=== PATIENT | female | born 1950 | race Caucasian/White ===

== ENCOUNTER → 2016-10-11 | Outpatient (CLI) | payer MEDICARE, OTHER ==
[~2016-10-11] MED LIST: ASP81TEC PO; ATOR10TA66 PO; ATOR40TA70 PO; CALC-732 PO; CHOL2000 PO; DULO20CA PO; DULO60CA6 PO; EST.625T PO; FURO20TA4 PO; HYDR-3730 PO; HYOS0.1281 PO; L.AC1CAP6 PO; LISI-594 PO; LISI10TA2 PO; METH32TA PO; MULT1CAP27 PO; NAPR-243 PO; OMEP20CA12 PO; ONDA4TAB8 PO; PANT40TA PO; POTA10CA43 PO; ROSU5TAB PO; SCR1T PO; VITA400C58 PO
--- NOTE | 2016-10-11 17:46 | Diagnostic Imaging Report ---
Bilateral screening mammogram The current study was also evaluated with a Computer Aided Detection (CAD) system. INDICATION: Screening. No current complaints stated on the questionnaire. COMPARISON: 10/11/2015. FINDINGS: The breasts are composed of heterogeneously dense parenchyma which may decrease mammographic sensitivity. Punctate benign-appearing calcifications are seen. Stable nodule in the outer aspect of the right breast has a suggestion of a fatty hilum of an intramammary lymph node. Allowing for technique and positional differences, no suspicious change is seen. IMPRESSION: No significant change. ACR BI-RADS Category 2: Benign findings. Result letter will be mailed to the patient. Note: At least 10% of breast cancer is not imaged by mammography. Dictated by: Dictated on workstation # [id number]
== END ==
LOC: RAD 13:49
PROVIDERS: ATTEND Family Medicine
DX: Z12.31 Encounter for screening mammogram for malignant neoplasm of breast (principal)
CPT/HCPCS: 77067

== ENCOUNTER → 2017-10-23 | Outpatient (CLI) | payer MEDICARE, OTHER ==
--- NOTE | 2017-10-25 11:41 | Diagnostic Imaging Report ---
INDICATION: Digital mammogram bilateral screening. This study was compared to prior exams of 10/11/2016 and 10/11/2015 and 10/07/2014. At this time, there are no current complaints. The current study was also evaluated with a Computer Aided Detection (CAD) system. FINDINGS: The fibroglandular tissue in both breasts is heterogeneously dense. This does limit the sensitivity of this exam. Overall, there does not appear to have been any significant change when compared to the prior study. No primary or secondary sign of malignancy is noted. IMPRESSION: There is no radiographic evidence for malignancy. ACR BI-RADS Category 1: Negative. Result letter will be mailed to the patient. Note: At least 10% of breast cancer is not imaged by mammography. Dictated on workstation # [id number]
== END ==
LOC: RAD 08:42
PROVIDERS: ATTEND Family Medicine
DX: Z12.31 Encounter for screening mammogram for malignant neoplasm of breast (principal)
CPT/HCPCS: 77067

== ENCOUNTER 2017-11-14 14:30 | Outpatient (CLI) | payer MEDICARE, OTHER ==
[~2017-11-14] VITALS: Ht 175.3 cm; Wt 85.4 kg
[2017-11-14] MEDS ORDERED: DULO60CA58 PO (14:33)
[2017-11-14] MEDS ORDERED: PANT40TA3 PO (14:33)
[2017-11-14] MEDS ORDERED: NAPR-915 PO (14:33)
== END 2017-11-14 14:57 ==
LOC: PREOP 14:30
PROVIDERS: ATTEND Surgery
DX: Z01.818 Encounter for other preprocedural examination (principal); R13.10 Dysphagia, unspecified

== ENCOUNTER 2017-11-20 09:20 | Day surgery (SDC) | payer MEDICARE, OTHER ==
[~2017-11-20] VITALS: Ht 175.3 cm; Wt 85.4 kg
[~2017-11-20 09:20] MED LIST changes: +DULO60CA58 PO; +NAPR-915 PO; +PANT40TA3 PO
[2017-11-20] MEDS ORDERED: NS IV 500 ML 500 ML IV PRN (09:27)
[2017-11-20] MEDS ORDERED: NS IV 500 ML 500 ML ONE (09:28)
[2017-11-20] MEDS ORDERED: HURRICAINE EXT TUBE (BENZOCAINE) XX PRN (09:30)
[2017-11-20] MEDS ORDERED: FLUMAZENIL (ROMAZICON) 0.1 MG/ML 5 ML VIAL INJ PRN (09:30)
[2017-11-20] MEDS ORDERED: NALOXONE 0.4 MG/ML 1 ML (NARCAN) VIAL IVP PRN (09:30)
[2017-11-20] MEDS ORDERED: LIDOCAINE JELLY 2% (XYLOCAINE) 5 ML TUBE MM PRN (09:30)
[2017-11-20 09:55] VITALS: BP 124/77
[2017-11-20] MEDS ORDERED: MIDAZOLAM 2 MG/2 ML (VERSED) VIAL ONE ×3 (10:04→10:05)
[2017-11-20] MEDS ORDERED: LIDOCAINE JELLY 2% (XYLOCAINE) 5 ML TUBE ONE (10:05)
[2017-11-20] MEDS ORDERED: fentaNYL INJECTION 100 MCG/2 ML AMP ONE (10:05)
[2017-11-20] MEDS ORDERED: HURRICAINE EXT TUBE (BENZOCAINE) ONE (10:05)
[2017-11-20] MEDS: fentaNYL INJECTION 100 MCG/2 ML AMP IVP PRN ×2 (10:30→10:40)
[2017-11-20] MEDS ORDERED: ONDANSETRON 4 MG/2 ML (SDV) Z0FRAN IV PRN (10:30)
[2017-11-20] MEDS ORDERED: ACETAMINOPHEN 325 MG TABLET/CAPLET (TYLENOL) PO PRN (10:30)
[2017-11-20] MEDS ORDERED: morphine INJ 10 MG/ML 1ML (SYR OR VIAL) IV PRN (10:30)
[2017-11-20] MEDS ORDERED: HYDROcodone/APAP 5 MG/325 MG (LORTAB) TAB PO PRN (10:30)
--- NOTE | 2017-11-20 10:30 | Conscious Sedation/ASA ---
Conscious Sedation Pre-Proced Time Reviewed: 10:00 ASA Class: 2 Airway Mallampati Classification: ([place] appropriate class) I. II. III, IV Lungs Heart ASA score ASA 1: a normal healthy patient ASA 2: a patient with a mild systemic disease (mid diabetes, controlled hypertension, obesity ASA 3: a patient with a severe systemic disease that limits activity (angina , COPD, prior Myocardial infarction) ASA 4: a patient with an incapacitating disease that is a constant threat to life (CHF, renal failure) ASA 5: a moribund patient not expected to survive 24 hrs. (ruptured aneurysm) ASA 6: a declared brain patient whose organs are being harvested. For emergent operations, add the letter E after the classification Grade 2 Sedation Plan: Analgesia, Amnesia, Plan communicated to team members, Discussed options with patient/fam, Discussed risks with patient/fam Note The patient is an appropriate candidate to undergo the planned procedure, sedation, and anesthesia. The patient immediately re-assessed prior to indication. AMRIT HULL MD November 20, 2017 10:30 am
--- NOTE | 2017-11-20 10:30 | Progress Note-Pre Operative ---
Pre-Operative Progress Note H&P Reviewed The H&P was reviewed, patient examined and no changes noted. Date Seen by Provider: November 20, 2017 Time Seen by Provider: 10:00 Date H&P Reviewed: November 20, 2017 Time H&P Reviewed: 10:00 Pre-Operative Diagnosis: dysphagia AMRIT HULL MD November 20, 2017 10:30 am
[2017-11-20] MEDS: MIDAZOLAM 2 MG/2 ML (VERSED) VIAL IVP PRN ×3 (10:32→10:50)
--- NOTE | 2017-11-20 11:06 | Progress Note-Post Operative ---
Post-Operative Progess Note Surgeon (s)/Full Stack Web Developer (s) Surgeon AMRIT HULL MD Full Stack Web Developer: none Pre-Operative Diagnosis dysphagia Post-Operative Diagnosis reflux esophagitis(class B), mild stricture, recurrent HH, mild gastritis. Procedure & Operative Findings Date of Procedure 11/20/17 Procedure Performed/Findings EGD with bx and balloon dilatation. Anesthesia Type CS Estimated Blood Loss Estimated blood loss (mL): minimal Specimens/Packing Specimens Removed GE jxn, antrum AMRIT HULL MD November 20, 2017 11:05 am
--- NOTE | 2017-11-20 11:07 | Discharge Inst-Surgical ---
D/C Lap Instructions-KURTIS Follow Up PRN Activity as tolerated High Fiber Diet 25g or more per day Avoid Alcohol, Caffeine, Spicy [place] and Acid foods. Drink 64 fluid oz or more of fluids per day. Symptoms to Report: Fever over 101 degree F, Nausea/Vomiting If any problems/questions: Contact your physician or go to Emergency Room AMRIT HULL MD November 20, 2017 11:07 am
[2017-11-20 11:10] VITALS: BP 114/74
[2017-11-20 11:45] VITALS: BP 119/76
[2017-11-20 12:13] VITALS: BP 119/76
--- NOTE | 2017-11-20 19:59 | OPERATIVE REPORT ---
DATE OF SERVICE: 11/20/2017 ATTENDING PRIMARY CARE PHYSICIAN: Latisha Beaulieu DO. PREOPERATIVE DIAGNOSIS: Dysphagia. POSTOPERATIVE DIAGNOSES: Reflux esophagitis class B, mild distal esophageal stricture, recurrent hiatal hernia, mild gastritis. PROCEDURE: EGD with biopsy and balloon dilatation. SURGEON: Amrit Hull MD ANESTHESIA: Conscious sedation. ESTIMATED BLOOD LOSS: Minimal. FINDINGS: Reflux esophagitis class B. There was also distal esophageal stricture, which was mild. There was a recurrent hiatal hernia identified with an intact wrap. DISPOSITION: The patient tolerated the procedure well. INDICATIONS: The patient is a 67-year-old female with longstanding history of gastroesophageal reflux disease. She underwent an EGD on 12/07/2011, which showed a reflux esophagitis class B as well as a large hiatal hernia. She continued to have symptoms and on 11/10/2015, underwent a laparoscopic hiatal hernia repair and Margie fundoplication. She states that her reflux symptoms have gone away; however, she went on a trip to [place] and was noncompliant with food and drinking alcohol and did feel substernal pressure sensation as well as epigastric discomfort. Since that time she has been taking Protonix, which has helped some, but she continues to have some symptoms with dysphagia. DESCRIPTION OF PROCEDURE: The patient was brought to the endoscopy suite, laid in the left lateral decubitus position with head slightly elevated. After adequate IV pain and sedating medications and conscious sedation anesthesia, the mouthpiece was applied. The endoscope was then placed in the mouth visualizing the pharynx and hypopharyngeal region. Vocal cords, epiglottis and vallecula identified and appeared normal. Endoscope was then gently intubated at the esophageal opening, esophagus insufflated. The endoscope was then advanced through the first, second and third portions of the esophagus at the level of the GE junction, a reflux esophagitis class B identified. There was a mild stricture identified within this region as well. A biopsy was taken with forceps to visualization of good hemostasis. The endoscope was then advanced in the stomach and endoscope retroflexed, visualizing a recurrent hiatal hernia. The wrap was intact with the wrap within the hiatal hernia. A mild gastritis was noted. There were no ulcers, polyps or any neoplasms identified. A biopsy was taken of the stomach antrum with forceps with visualization of good hemostasis. The endoscope was then advanced to the pylorus and into the first and second portion of the duodenum, which appeared normal with no distal obstructions. We decided to proceed with dilatation of the wrapped portion to allow for symptomatic relief. A CRE fixed guidewire balloon was placed into the stomach and placed back to the area of the stricture. We first proceeded with 3 atmospheres of pressure 18 mm with no resistance. We then proceeded to 4.5 atmospheres of pressure or 19 mm in diameter with mild resistance. We then proceeded to approximately 5 atmospheres of pressure with moderate resistance and left this in place for approximately 60 seconds. The balloon was then desufflated and removed. There were no mucosal tears identified as well as no bleeding. The endoscope was then slowly withdrawn while taking a second look and suctioning of residual air with no additional findings. The patient tolerated the procedure well. We will recommend a conservative management with small more frequent meals, avoidance of eating at night as well as head elevation while lying supine. She also needs to avoid caffeinated beverages, alcohol as well as spicy, greasy and acidic foods. Hopefully, the dilatation of the wrapped portion of the Margie will help with her symptoms. However, she does have a recurrent hiatal hernia. There is increased morbidity with repair of recurrent hiatal hernias and we will recommend conservative medical management. However, for symptoms worsen despite maximal medical therapy. We will refer her to a thoracic specialist. Job ID: [id number] DocumentID: [id number] Dictated Date: 11/20/2017 11:13:42 Supervisor Pairing And Inspecting Date: 11/20/2017 19:58:31 Dictated By: AMRIT HULL MD
== END 2017-11-20 12:15 | disposition home or self-care (01) ==
LOC: ENDO 09:20
PROVIDERS: ATTEND Surgery
DX: K21.0 Gastro-esophageal reflux disease with esophagitis (principal); K22.2 Esophageal obstruction; K44.9 Diaphragmatic hernia without obstruction or gangrene; K29.70 Gastritis, unspecified, without bleeding; I10 Essential (primary) hypertension; E78.00 Pure hypercholesterolemia, unspecified; Z98.1 Arthrodesis status; Z79.899 Other long term (current) drug therapy
CPT/HCPCS: 88305

== ENCOUNTER → 2017-12-17 | Outpatient (CLI) | payer MEDICARE, OTHER ==
--- NOTE | 2017-12-17 13:12 | Diagnostic Imaging Report ---
INDICATION: Pelvic pain, bilateral oophorectomy and hysterectomy. FINDINGS: Uterus and ovaries are surgically absent. No pelvic fluid collection or ascites. IMPRESSION: Normal postoperative pelvic ultrasound. Dictated by: Dictated on workstation # [id number]
== END ==
LOC: RAD 11:22
PROVIDERS: ATTEND Nurse Practitioner Family
DX: R10.2 Pelvic and perineal pain (principal); Z90.710 Acquired absence of both cervix and uterus; Z90.722 Acquired absence of ovaries, bilateral
CPT/HCPCS: 76830; 76856

== ENCOUNTER → 2018-01-01 | Outpatient (CLI) | payer MEDICARE, OTHER ==
--- NOTE | 2018-01-01 12:26 | Diagnostic Imaging Report ---
INDICATION: Low back pain. COMPARISON: None. FINDINGS: Three views of the lumbar spine are obtained. There is moderate levocurvature of the lumbar spine. There is minimal retrolisthesis of L2 on L3, likely degenerative. There is facet arthropathy throughout the lumbar spine most pronounced at L4/L5 and L5/S1. No acute fracture or osseous destructive process is seen. The pedicles appear intact. Sacroiliac joints appear unremarkable. There is disc space narrowing at L2/L3 and L3/L4 most pronounced at the stress of the curve. IMPRESSION: Levocurvature of lumbar spine with degenerative changes as described above. Dictated by: Dictated on workstation # [id number]
--- NOTE | 2018-01-01 16:18 | Diagnostic Imaging Report ---
INDICATION: Right hip pain, leg pain. TECHNIQUE: Two views of the right hip. CORRELATION STUDY: 08/27/2013. FINDINGS: The femoral head and acetabular relationship demonstrates rather significant joint space narrowing which has progressed from prior imaging. Slight sclerosis is noted about the femoral head and acetabulum. Additionally, there is very slight loss of normal rounded smooth contour about the femoral head. The bony trabecular pattern is otherwise intact with no evidence for acute fracture. Visualized portion of the right hemipelvis intact. IMPRESSION: 1. Negative for acute bony abnormality of the right hip. There has been progressive advanced degenerative change about the right hip with significant joint space narrowing and reactive sclerosis. Very slight loss of normal rounded smooth contour and volume of the femoral head. Dictated by: Dictated on workstation # [id number]
== END ==
LOC: RAD 10:14
PROVIDERS: ATTEND Family Medicine
DX: M16.11 Unilateral primary osteoarthritis, right hip (principal); M43.8X6 Other specified deforming dorsopathies, lumbar region; M46.87 Other specified inflammatory spondylopathies, lumbosacral region; M47.816 Spondylosis without myelopathy or radiculopathy, lumbar region
CPT/HCPCS: 72100; 73502

== ENCOUNTER 2018-01-07 08:00 | Outpatient (RCR) | payer MEDICARE, OTHER | END 2018-01-07 08:32 | disposition home or self-care (01) | PROVIDERS: ATTEND Family Medicine | DX: M51.16 Intervertebral disc disorders with radiculopathy, lumbar region (principal); M25.551 Pain in right hip ==

== ENCOUNTER → 2018-06-03 | Outpatient (CLI) | payer MEDICARE, OTHER | LOC: CARD 11:56 | PROVIDERS: ATTEND Internal Medicine Cardiovascular Disease | DX: I25.10 Atherosclerotic heart disease of native coronary artery without angina pectoris (principal); I10 Essential (primary) hypertension; R07.9 Chest pain, unspecified; E78.2 Mixed hyperlipidemia | CPT/HCPCS: 93306 ==

== ENCOUNTER → 2018-11-17 | Outpatient (CLI) | payer MEDICARE, OTHER ==
--- NOTE | 2018-11-17 17:30 | Diagnostic Imaging Report ---
INDICATION: Screening The current study was also evaluated with a Computer Aided Detection (CAD) system. 3-D Tomographic imaging was also performed. COMPARISON: 10/23/2017, 10/11/2016 and 10/11/2015 FINDINGS: There are scattered fibroglandular nodular densities bilaterally. There are a few benign type calcifications. There is no dominant mass, spiculated lesion or suspicious calcification identified. The skin, nipples and axillae are unremarkable. IMPRESSION: Category 2 benign. ACR BI-RADS Category 2: Benign findings. Result letter will be mailed to the patient. Note: At least 10% of breast cancer is not imaged by mammography. Dictated by: Dictated on workstation # [id number]
== END ==
LOC: RAD 14:17
PROVIDERS: ATTEND Family Medicine
DX: Z12.31 Encounter for screening mammogram for malignant neoplasm of breast (principal)
CPT/HCPCS: 77067

== ENCOUNTER 2019-11-05 15:00 | Outpatient (RCR) | payer MEDICARE, OTHER ==
[~2019-11-05 15:00] MED LIST changes: -DULO60CA58 PO; +DULO60CA59 PO; +VITA-272 PO; -VITA400C58 PO
== END 2019-12-16 | disposition home or self-care (01) ==
PROVIDERS: ATTEND Orthopaedic Surgery
DX: Z47.1 Aftercare following joint replacement surgery (principal); Z96.612 Presence of left artificial shoulder joint

== ENCOUNTER → 2019-12-23 | Outpatient (CLI) | payer MEDICARE, OTHER ==
--- NOTE | 2019-12-23 14:48 | Diagnostic Imaging Report ---
INDICATION: Routine screening. COMPARISON: 11/17/2018 and 10/23/2017. TECHNIQUE: 2D and 3D bilateral screening mammography was performed with CAD. FINDINGS: Scattered fibroglandular densities are identified bilaterally. The benign-appearing nodular density in the lateral right breast is stable. No new mass or malignant appearing microcalcifications are seen. The axillae are unremarkable. IMPRESSION: No mammographic features suspicious for malignancy are identified. ACR BI-RADS Category 2: Benign findings. Result letter will be mailed to the patient. Note: At least 10% of breast cancer is not imaged by mammography. Dictated by: Dictated on workstation # [id number]
== END ==
LOC: RAD 10:42
PROVIDERS: ATTEND Family Medicine
DX: Z12.31 Encounter for screening mammogram for malignant neoplasm of breast (principal)
CPT/HCPCS: 77063; 77067

== ENCOUNTER → 2019-12-31 | Outpatient (CLI) | payer MEDICARE, OTHER ==
--- NOTE | 2019-12-31 09:15 | Diagnostic Imaging Report ---
PROCEDURE: US Hepatic (Liver). TECHNIQUE: Multiple real-time grayscale images were obtained over the right upper quadrant in various projections. INDICATION: Elevated alkaline phosphatase. Liver is normal in size at 13.2 cm. No discrete liver mass is detected. The portal vein is patent and shows normal directional flow. The gallbladder is without stones or sludge. No wall thickening or biliary duct dilatation is identified. The pancreas is unremarkable. The right kidney is without calculi or hydronephrosis. There is no ascites. IMPRESSION: Unremarkable liver ultrasound. Dictated by: Dictated on workstation # [id number]
== END ==
LOC: RAD 07:54
PROVIDERS: ATTEND Family Medicine
DX: R74.8 Abnormal levels of other serum enzymes (principal)
CPT/HCPCS: 76705

== ENCOUNTER → 2020-05-26 | Outpatient (CLI) | payer MEDICARE, OTHER ==
[~2020-05-26] MED LIST changes: -PANT40TA3 PO; +PANT40TA52 PO
--- NOTE | 2020-05-26 09:02 | Diagnostic Imaging Report ---
EXAMINATION: CT head without contrast. TECHNIQUE: Multiple contiguous axial images were obtained through the brain without the use of intravenous contrast. All CT scans use one or more of the following dose optimizing techniques: automated exposure control, MA and/or KvP adjustment based on a patient size and exam type, or iterative reconstruction. HISTORY: Fall one week ago. Headache. Scalp contusion. COMPARISON: None available. FINDINGS: No large acute territorial ischemia, mass, or hemorrhage. Prominent perivascular space versus old lacunar infarct is seen in the right basal ganglia. No midline shift or mass effect. The ventricles, cortical sulci, and basilar cisterns are patent and unremarkable. The orbits are normal. Paranasal sinuses are normal. Mastoid air cells are clear. No soft tissue abnormality is seen. No osseous lesions or fractures are seen. IMPRESSION: 1. No large acute territorial ischemia, mass, or hemorrhage. 2. Prominent perivascular space versus old lacunar infarct in the right basal ganglia. Dictated by: Dictated on workstation # [id number]
== END ==
LOC: RAD 08:37
PROVIDERS: ATTEND Nurse Practitioner Family
DX: I63.81 Other cerebral infarction due to occlusion or stenosis of small artery (principal)
CPT/HCPCS: 70450

== ENCOUNTER → 2020-06-02 | Outpatient (CLI) | payer MEDICARE | LOC: LABNPT 05:54 | PROVIDERS: ATTEND Internal Medicine Gastroenterology | DX: Z01.812 Encounter for preprocedural laboratory examination (principal); Z20.828 Contact with and (suspected) exposure to other viral communicable diseases ==

== ENCOUNTER → 2020-06-03 | Outpatient (CLI) | payer MEDICARE | LOC: LABNPT 08:31 | PROVIDERS: ATTEND Internal Medicine Gastroenterology | DX: Z01.812 Encounter for preprocedural laboratory examination (principal); Z20.828 Contact with and (suspected) exposure to other viral communicable diseases | CPT/HCPCS: 87635 ==

== ENCOUNTER → 2020-06-08 | Outpatient (CLI) | payer MEDICARE, OTHER ==
--- NOTE | 2020-06-08 11:28 | Diagnostic Imaging Report ---
PROCEDURE: US carotid duplex, bilateral. TECHNIQUE: Multiple real-time grayscale images were obtained over the carotid arteries in various projections, bilaterally. Additional spectral analysis and color Doppler duplex images were also obtained. INDICATION: Carotid plaque. No significant plaquing is identified within either carotid system. Velocities are normal bilaterally. No velocity elevation or stenosis is identified. Both vertebral arteries show antegrade flow. IMPRESSION: No evidence of a hemodynamically significant stenosis. Parameters based on the consensus panel Pepe-Scale and Doppler ultrasound criteria published May 2003, Radiology, Volume 229. DOPPLER (peak systolic velocity M/S Right Left CCA 0.73 0.85 ICA Proximal 0.59 0.61 ICA Mid 0.75 0.78 ICA Distal 0.52 0.79 RATIO 1.03 0.93 ECA 1.07 0.78 VERT 0.52 0.45 Dictated by: Dictated on workstation # [id number]
== END ==
LOC: RAD 10:15
PROVIDERS: ATTEND Family Medicine
DX: I65.23 Occlusion and stenosis of bilateral carotid arteries (principal)
CPT/HCPCS: 93880

== ENCOUNTER → 2020-11-23 | Outpatient (CLI) | payer MEDICARE, OTHER ==
[~2020-11-23] MED LIST changes: -LISI10TA2 PO; +LISI10TA25 PO
== END ==
LOC: CARD 11:30
PROVIDERS: ATTEND Physician Assistant
DX: I11.9 Hypertensive heart disease without heart failure (principal); I25.10 Atherosclerotic heart disease of native coronary artery without angina pectoris; I08.1 Rheumatic disorders of both mitral and tricuspid valves
CPT/HCPCS: 93306

== ENCOUNTER → 2021-01-16 | Outpatient (CLI) | payer MEDICARE, OTHER ==
--- NOTE | 2021-01-16 10:56 | Diagnostic Imaging Report ---
INDICATION: Routine screening. COMPARISON: 12/23/2019 and 11/17/2018. TECHNIQUE: 2D and 3D bilateral screening mammography was performed with CAD. FINDINGS: Scattered fibroglandular densities are identified bilaterally. A lobulated nodular density in the outer aspect of the right breast at mid depth appears slightly larger on today's study. Additional views are recommended. The left breast is unremarkable. There are scattered benign calcifications. No malignant appearing microcalcifications are seen. The axillae are unremarkable. IMPRESSION: The right breast density appears slightly larger on today's study. Additional views are recommended for further evaluation. ACR BI-RADS Category 0: Incomplete. (Needs additional imaging evaluation). Result letter will be mailed to the patient. Note: At least 10% of breast cancer is not imaged by mammography. Dictated by: Dictated on workstation # [id number]
== END ==
LOC: RAD 09:45
PROVIDERS: ATTEND Family Medicine
DX: Z12.31 Encounter for screening mammogram for malignant neoplasm of breast (principal)
CPT/HCPCS: 77063; 77067

== ENCOUNTER → 2021-01-19 | Outpatient (CLI) | payer MEDICARE, OTHER ==
--- NOTE | 2021-01-19 14:26 | Diagnostic Imaging Report ---
Indication: Right breast density. Patient presents for additional views. Correlation is made with screening study from 01/16/2021. Unilateral right 2-D and 3-D diagnostic mammography was performed. This includes spot compression CC and ML views as well as conventional 90 degrees lateral views. There is a persistent lobulated nodular density in the lower outer aspect of the right breast approximately 6 cm from the nipple. This may represent a cluster of cysts. This has fairly benign features. No suspicious microcalcifications are seen. IMPRESSION: BI-RADS 0 Persistent lobulated nodular density in the lower outer right breast mid depth. Further evaluation with ultrasound is recommended and will be performed today. ACR BI-RADS Category 0: Incomplete. (Needs additional imaging evaluation). Result letter will be mailed to the patient. Note: At least 10% of breast cancer is not imaged by mammography. Dictated by: Dictated on workstation # [id number]
--- NOTE | 2021-01-19 14:44 | Diagnostic Imaging Report ---
Indication: Right breast density. Patient presents for additional views. Correlation is made with diagnostic mammogram earlier the same day and screening mammogram from 01/16/2021. Sonographic interrogation of the lower outer right breast was performed. There is a hypoechoic lobulated nodule at the 8:00 location, 2 semis from the nipple measuring 10 mm x 5 mm x 3 mm. This has the appearance of a cluster of cysts. This does correspond to the density noted mammographically. No internal vascularity is present. There is no posterior acoustic shadowing. IMPRESSION: BI-RADS Category 2 Probable cluster of cysts at the 8:00 location right breast, accounting for the mammographic density. The patient may return to routine annual screening mammography. ACR BI-RADS Category 2: Benign findings. Dictated by: Dictated on workstation # [id number]
== END ==
LOC: RAD 14:00
PROVIDERS: ATTEND Family Medicine
DX: R92.2 Inconclusive mammogram (principal)
CPT/HCPCS: 76642; 77065; G0279

== ENCOUNTER → 2021-04-12 | Outpatient (CLI) | payer MEDICARE, OTHER ==
[~2021-04-12] VITALS: Ht 172 cm; Wt 68.0 kg
[~2021-04-12] MED LIST changes: +CATHETER FLUSH 10 ML SYR IV PRN
[2021-04-12 12:59] VITALS: BP 152/92
[2021-04-12 13:02] VITALS: BP 182/102
[2021-04-12 13:05] VITALS: BP 140/93
--- NOTE | 2021-04-12 14:52 | Cardiology Stress Test Report ---
Stress Test Report Date of Procedure/Referring: Date of Procedure: Apr 12, 2021 Makayla Mcbride Admitting Physician Latisha Beaulieu DO Indications: HTN Baseline Heart Rate: 70 Baseline Blood Pressure: Blood Pressure Systolic: 140 Blood Pressure Diastolic: 93 Vital Signs Date Time Temp Pulse Resp B/P (MAP) Pulse Ox O2 Delivery O2 Flow Rate FiO2 04/12/21 12:59 92 18 152/92 (112) 97 Room Air Baseline Vital Signs Vital Signs Date Time Temp Pulse Resp B/P (MAP) Pulse Ox O2 Delivery O2 Flow Rate FiO2 04/12/21 12:59 92 18 152/92 (112) 97 Room Air Baseline EKG: Baseline EKG: NSR Summary: After explaining the procedure and details to the patient, she signed the consent and was brought to the stress nuclear laboratory. Patient exercised on standard Gopal protocol, EKG, heart rate and blood pressure were monitored continuously, resting and stress doses of radio tracer were injected, imaging was acquired and reviewed in the short axis, horizontal long axis and vertical long axis views Patient was able to exercise for a total of 4 minutes on Gopal protocol, METs 15.8 Maximum heart rate 153 Maximum blood pressure 193/109 Stress EKG, Minimal nondiagnostic changes Recovery EKG, Return to baseline TID: 1.07 SSS: 1 SDS: 1 EF: 60 Conclusion: 1. Fair exercise tolerance for a total of 4 minutes on standard Gopal protocol, 5.8 METS achieving 100% of maximal expected heart rate 2. Severe hypertensive response to exercise with peak blood pressure 193/100 return to baseline during recovery 3. Nondiagnostic EKG changes with exercise return to baseline during recovery 4. No significant ischemia or infarction was noted, breast attenuation affecting the quality of the images with mild fixed defect at the apex 5. Normal left ventricular size with normal contractility, EF 60% CHARI YADAV MD Apr 12, 2021 14:52
== END ==
LOC: CARD 11:23
PROVIDERS: ATTEND Physician Assistant
DX: I10 Essential (primary) hypertension (principal); I25.10 Atherosclerotic heart disease of native coronary artery without angina pectoris
CPT/HCPCS: 78452; 93017; A9502

== ENCOUNTER → 2022-02-08 | Outpatient (CLI) | payer MEDICARE, OTHER ==
[~2022-02-08] MED LIST changes: -CATHETER FLUSH 10 ML SYR IV PRN
--- NOTE | 2022-02-08 12:29 | Diagnostic Imaging Report ---
INDICATION: Routine screening. Comparison is made with prior mammogram 12/27/2020 and 12/23/2019. 2-D and 3-D bilateral screening mammography was performed with CAD. Scattered fibroglandular densities are identified bilaterally. A slightly lobulated density in the outer right breast mid depth appears stable. No new mass or malignant-appearing microcalcifications are seen. Axillae are unremarkable. IMPRESSION: No mammographic features suspicious for malignancy are identified. ACR BI-RADS Category 2: Benign findings. Result letter will be mailed to the patient. Note: At least 10% of breast cancer is not imaged by mammography. BI-RADS Category 2 Dictated by: Dictated on workstation # [id number]
== END ==
LOC: RAD 10:30
PROVIDERS: ATTEND Family Medicine
DX: Z12.31 Encounter for screening mammogram for malignant neoplasm of breast (principal)
CPT/HCPCS: 77063; 77067

== ENCOUNTER → 2022-05-08 | Outpatient (CLI) | payer MEDICARE, OTHER ==
--- NOTE | 2022-05-08 09:36 | Diagnostic Imaging Report ---
EXAMINATION: US Abdomen limited. TECHNIQUE: Multiple real-time grayscale images were obtained over the right upper quadrant in various projections. REASON FOR EXAM: Right upper quadrant pain. COMPARISON: 12/31/2019.. FINDINGS: The liver is normal in size and shape. The liver echogenicity is within normal limits. There are no focal lesions. No intrahepatic biliary dilatation is present. The common bile duct is not dilated and measures 6 mm. The main portal vein is hepatopedal. No ascites is seen in the upper abdomen. There is no evidence of cholelithiasis, gallbladder wall thickening or pericholecystic fluid. Sonographic Huang's sign is negative. The visualized portion of the head of the pancreas are within normal limits. The body and tail of the pancreas are not well visualized due to overlying bowel gas. The visualized portions of the IVC and aorta appear normal. The right kidney measures approximately 8.6 cm in length. Punctate calcification is seen within the right kidney measuring 0.3 cm. IMPRESSION: 1. No cholelithiasis or acute cholecystitis. No liver or gallbladder abnormality detected. 2. Likely nonobstructing calculus in the mid right kidney. No evidence of hydronephrosis. Dictated by: Dictated on workstation # [id number]
== END ==
LOC: RAD 07:04
PROVIDERS: ATTEND Family Medicine
DX: R10.11 Right upper quadrant pain (principal); R10.13 Epigastric pain
CPT/HCPCS: 76705